=== PATIENT | male | born 1960 | race African-American/Black ===

== ENCOUNTER 2019-06-16 05:49 | Inpatient (IN) | payer OTHER ==
[~2019-06-16 05:49] MED LIST: CEFAZOLIN INJ 1 GM VIAL IV PRN; LACTATED RINGERS 1000 ML IV PRN; LIDOCAINE 0.5% INJ-PF (5 MG/ML) 50 ML SDV SUBCUT PRN; OXYCODONE HCL SR 10 MG TABLET PO PRN; PANTOPRAZOLE SODIUM 20 MG TABLET.DR PO PRN; VANCOMYCIN HCL 1,000 MG in DEXTROSE 5%-WATER 250 ML IV PRN
[2019-06-16] MEDS ORDERED: ONDANSETRON HCL INJ/PF 4 MG/2 ML SDV ONE (06:37)
[2019-06-16] MEDS ORDERED: DEXAMETHASONE SOD PHOSPHATE INJ 4 MG/1 ML VIAL ONE (06:37)
[2019-06-16] MEDS ORDERED: MIDAZOLAM 2 MG/2 ML INJ ONE (06:37)
[2019-06-16] MEDS ORDERED: TRANEXAMIC ACID INJ/PF 1,000 MG/10 ML SDV IV ONE ×2 (06:37→14:00)
[2019-06-16] MEDS ORDERED: FENTANYL CITRATE INJ/PF 100 MCG/2 ML AMPUL ONE (06:37)
[2019-06-16] MEDS ORDERED: PROPOFOL INJ 200 MG/20 ML VIAL IV ONE (06:38)
[2019-06-16] MEDS ORDERED: OXYCODONE HCL SR 10 MG TABLET PO ONE (08:02)
[2019-06-16] MEDS ORDERED: PANTOPRAZOLE SODIUM 20 MG TABLET.DR PO ONE (08:03)
[2019-06-16] MEDS ORDERED: BUPIVACAINE HCL 0.25% /EPINEPHRINE INJ/PF 30 ML SDV ONE (08:27)
[2019-06-16] MEDS ORDERED: CEFAZOLIN INJ 1 GM VIAL ONE (08:56)
[2019-06-16] MEDS ORDERED: THROMBIN (BOVINE) TOPICAL 20000 UNIT VIAL ONE (09:21)
[2019-06-16] MEDS ORDERED: PROMETHAZINE HCL INJ 25 MG/1 ML VIAL IV PRN ×2 (09:36)
[2019-06-16] MEDS ORDERED: ONDANSETRON HCL INJ/PF 4 MG/2 ML SDV IV PRN ×2 (09:36→11:07)
[2019-06-16] MEDS ORDERED: FENTANYL CITRATE INJ/PF 100 MCG/2 ML AMPUL IV PRN ×3 (09:36)
[2019-06-16] MEDS ORDERED: MEPERIDINE HCL/PF INJ 25 MG/1 ML DISP.SYRIN IV PRN (09:36)
[2019-06-16] MEDS ORDERED: MORPHINE SULFATE 10 MG/ML INJ IV PRN (09:36)
[2019-06-16] MEDS ORDERED: DIPHENHYDRAMINE HCL 50 MG/ML VIAL IV PRN ×2 (09:36→11:07)
--- NOTE | 2019-06-16 11:06 | Operative Report ---
Operative Report DATE OF SURGERY: 06/16/19 PREOPERATIVE DIAGNOSIS: Inflammatory arthropathy right knee OPERATION: Posterior stabilized right knee arthroplasty SURGEON: TATINAA BALL ANESTHESIA: Spinal TISSUE REMOVED OR ALTERED: Bone to pathology ESTIMATED BLOOD LOSS: 75 PROCEDURE: Implants used: Femur: Ilan triathlon PS femur, size 7 Tibia: 6 tibia Tibial liner: 11 mm PS insert Patella: 38 oval patella Procedure with the patient supine on the operating table the right the limb is prepped and draped in a sterile fashion. The limb was elevated for exsanguination and the tourniquet inflated to 280 torr. A standard midline median parapatellar approach the knee is taken. Access is gained to the femoral canal through the intercondylar notch. Intramedullary alignment instrumentation used to resect 10 mm of distal femur in 5 of valgus. Sizing guide indicated a size 7 femur. Appropriate cutting jig is then used to fashion anterior posterior and chamfer cuts. A separate jig was then used to resect the PS box. A trial reduction femurs performed and this is judged to be adequate. Attention was next turned to the tibia. Using an extra medullary alignment system 9 millimeters was resected off the lateral tibial plateau. This is sized to a size 6 tibia. A trial reduction was now performed with a 7 femur and a 6 tibia using a 11 millimeters spacer. It is full extension and central patellofemoral tracking. The articular surface the patella was next resected using an oscillating saw. All trial implants were removed. Polymethylmethacrylate is mixed and used to cement the above implants in place. On adequate curing the cement excess cement was removed the tourniquet was deflated hemostasis obtained the wound is then closed in layers using interrupted Vicryl followed by kailey. A sterile compressive dressing was applied and the patient returned to recovery room in satisfactory condition.
[2019-06-16] MEDS ORDERED: ZOLPIDEM TARTRATE 5 MG TABLET PO PRN ×2 (11:07→13:30)
[2019-06-16] MEDS ORDERED: OXYCODONE HCL IR 5 MG TABLET PO PRN (11:07)
[2019-06-16] MEDS ORDERED: ONDANSETRON 4 MG TAB.RAPDIS PO PRN ×2 (11:07→13:30)
[2019-06-16] MEDS ORDERED: MAG HYDROX/AL HYDROX/SIMETH SUSP 30 ML UDCUP PO PRN (11:07)
[2019-06-16] MEDS ORDERED: ACETAMINOPHEN 325 MG TABLET PO PRN (11:07)
--- NOTE | 2019-06-16 12:20 | RADIOLOGY REPORT (SQ) ---
EXAM DESCRIPTION: KNEE RIGHT 2 VIEWS COMPLETED DATE/TIME: 06/16/2019 11:50 am REASON FOR STUDY: Post OP -Long Cassette in PACU M17.11 UNILATERAL PRIMARY OSTEOARTHRITIS, RIGHT KN EE COMPARISON: None. NUMBER OF VIEWS: Two view(s). TECHNIQUE: Digital radiographic images of the right knee post-procedure. LIMITATIONS: None. FINDINGS: BONES: No worrisome or unexpected findings post-procedure. DEVICE: Total knee arthroplasty SOFT TISSUES: No worrisome findings. Expected postoperative soft tissue changes. IMPRESSION: SATISFACTORY POSTOPERATIVE RIGHT KNEE. TECHNICAL DOCUMENTATION: JOB ID: [id number] [employer] 2000- All Rights Reserved Reading location - IP/workstation name: [email or web address]
[2019-06-16] MEDS: ONDANSETRON HCL INJ/PF 4 MG/2 ML SDV IV PRN (15:01)
[2019-06-16] MEDS: IBUPROFEN 800 MG in NORMAL SALINE 250 ML IV SCH ×2 (15:42→21:25)
[2019-06-16] MEDS: RINGERS SOLUTION,LACTATED 1,000 ML IV PRN ×2 (15:47→23:35)
[2019-06-16] MEDS ORDERED: EPINEPHRINE 0.3 MG IM PRN (16:30)
[2019-06-16] MEDS: SENNOSIDES/DOCUSATE 8.6-50 MG 1 EACH TABLET PO SCH (17:32)
[2019-06-16] MEDS ORDERED: FLECAINIDE ACETATE 100 MG TABLET PO SCH (18:00)
[2019-06-16] MEDS: OXYCODONE HCL SR 10 MG TABLET PO SCH (21:25)
[2019-06-16] MEDS: FLECAINIDE ACETATE 100 MG TABLET PO SCH (21:55)
[2019-06-16] MEDS ORDERED: ATORVASTATIN CALCIUM 40 MG TABLET PO SCH (22:00)
[2019-06-16] MEDS ORDERED: VANCOMYCIN HCL 1,000 MG in DEXTROSE 5%-WATER 250 ML IV ONE (23:07)
[2019-06-17] MEDS ORDERED: PANTOPRAZOLE SODIUM 40 MG TABLET.DR PO SCH (06:00)
[2019-06-17] MEDS: IBUPROFEN 800 MG in NORMAL SALINE 250 ML IV SCH (06:09)
[2019-06-17 06:13] LABS: HEMATOCRIT 33.3 % (37.9-51.0); HEMOGLOBIN 11.1 g/dL (13.5-17.0); MEAN CORPUSCULAR HEMOGLOBIN 28.4 pg (27.0-33.4); MEAN CORPUSCULAR HGB CONC 33.4 g/dL (32.0-36.0); MEAN CORPUSCULAR VOLUME 85 fl (80-97); PLATELET COUNT 335 10^3/uL (150-450); RED BLOOD COUNT 3.92 10^6/uL (4.35-5.55); RED CELL DISTRIBUTION WIDTH 16.9 % (11.5-14.0); WHITE BLOOD COUNT 8.5 10^3/uL (4.0-10.5)
[2019-06-17] MEDS: RINGERS SOLUTION,LACTATED 1,000 ML IV PRN (06:14)
[2019-06-17 06:38] LABS: ANION GAP 8 (5-19); BLOOD UREA NITROGEN 19 mg/dL (7-20); CALCIUM 8.5 mg/dL (8.4-10.2); CARBON DIOXIDE 29 mmol/L (22-30); CHLORIDE 98 mmol/L (98-107); GLUCOSE 123 mg/dL (75-110); POTASSIUM 4.2 mmol/L (3.6-5.0)
--- NOTE | 2019-06-17 06:59 | PDOC DISCHARGE SUMMARY ---
General - Admit/Disc Date/PCP Admission Date/Primary Care Provider: 06/16/19 07:41 [facility] Discharge Date: 06/17/19 - Additional Information Resuscitation Status: Full Code Discharge Diet: As Tolerated, Regular Discharge Activity: Balance Activity w/Rest, No Driving, No tub bath Home Medications: Aspirin [Aspirin 81 mg Chewable Tablet] 81 mg PO DAILY 06/04/19 Atorvastatin Calcium [Lipitor 40 mg Tablet] 40 mg PO DAILY 06/04/19 Epinephrine 0.3 mg IM PRN PRN 06/04/19 Flecainide Acetate [Tambocor 100 mg Tablet] 100 mg PO BID 06/04/19 Folic Acid [Folvite 1 mg Tablet] 1 mg PO DAILY 06/04/19 Hydrochlorothiazide [Hydrodiuril 25 mg Tablet] 25 mg PO DAILY 06/04/19 Metoprolol Succinate [Toprol Xl 50 mg Tab.sr] 50 mg PO DAILY 06/04/19 Potassium Chloride 10 meq PO DAILY 06/04/19 Prednisone [Deltasone 5 mg Tablet] 5 mg PO DAILY 06/16/19 History of Present Illness History of Present Illness: DEYANIRA COSME is a 58 year old male Patient is a 58-year-old black male with an inflammatory arthropathy and ongoing progressive bilateral knee pain and functional disability right greater than left. Patient is admitted for elective right knee arthroplasty. Hospital Course Hospital Course: Patient is admitted through the operating room where he undergoes uncomplicated right knee arthroplasty. Is returned to floor in satisfactory condition. Initially had problems with nausea and vomiting this resolved with Zofran. He made excellent progress with physical therapy. Compressive dressing was removed on postop day 1. Underlying OpSite dressing is clean dry and intact. Physical Exam Vital Signs: Temp Pulse Resp BP Pulse Ox 37.0 C 57 L 17 135/64 H 97 06/16/19 23:39 06/16/19 23:39 06/16/19 23:39 06/16/19 23:39 06/16/19 23:39 Intake & Output 06/15/19 06/16/19 06/17/19 06:59 06:59 06:59 Intake Total 4944 Output Total 1025 Balance 3919 Weight 101.3 kg Physical Exam: Middle-aged black male lying in bed in CPAP machine in no distress. General appearance: PRESENT: no acute distress Head exam: PRESENT: normocephalic Respiratory exam: PRESENT: unlabored Cardiovascular exam: PRESENT: RRR Pulses: PRESENT: +1 pedal pulses bilateral GI/Abdominal exam: PRESENT: soft Rectal exam: PRESENT: deferred Extremities exam: PRESENT: other - Distal neurovascular examination is intact. Minimal pedal edema. Neurological exam: PRESENT: alert, awake, oriented to person, oriented to place, oriented to time, oriented to situation. ABSENT: motor sensory deficit Psychiatric exam: PRESENT: appropriate affect, normal mood. ABSENT: homicidal ideation, suicidal ideation Skin exam: PRESENT: dry, intact, warm. ABSENT: cyanosis, rash Results Laboratory Results: 06/17/19 04:42 06/17/19 04:42 06/16/19 06/17/19 06/17/19 08:43 04:42 04:42 WBC 8.5 RBC 3.92 L Hgb 11.1 L Hct 33.3 L MCV 85 MCH 28.4 MCHC 33.4 RDW 16.9 H Plt Count 335 Sodium 134.8 L Potassium 3.6 4.2 Chloride 98 Carbon Dioxide 29 Anion Gap 8 BUN 19 Creatinine 1.06 Est GFR ( Amer) > 60 Est GFR (Non-Af Amer) > 60 Glucose 123 H Calcium 8.5 Impressions: Knee X-Ray 06/16/19 11:08 IMPRESSION: SATISFACTORY POSTOPERATIVE RIGHT KNEE. Status: Imported from [facility] Qualifiers - * PATIENT BEING DISCHARGED WITH ANY OF THE FOLLOWING DIAGNOSIS: No VTE patient discharged on overlapping Therapy?: Yes Acute Heart Failure - Is this a Heart Failure Patient?: No Plan Discharge Plan: Patient be discharged home with home health services and DME. Follow-up with Dr. Elina Raya [place] for surgery in 2 weeks for staple removal.
[2019-06-17] MEDS: ONDANSETRON HCL INJ/PF 4 MG/2 ML SDV IV PRN (08:21)
[2019-06-17] MEDS: FLECAINIDE ACETATE 100 MG TABLET PO SCH (09:19)
[2019-06-17] MEDS: SENNOSIDES/DOCUSATE 8.6-50 MG 1 EACH TABLET PO SCH (09:19)
[2019-06-17] MEDS: OXYCODONE HCL SR 10 MG TABLET PO SCH (09:20)
[2019-06-17] MEDS ORDERED: ATORVASTATIN CALCIUM 40 MG TABLET PO SCH (10:00)
[2019-06-17] MEDS ORDERED: PREDNISONE 5 MG TABLET PO SCH ×2 (10:00)
[2019-06-17] MEDS ORDERED: ASPIRIN 81 MG TABLET, CHEWABLE PO SCH (10:00)
[2019-06-17] MEDS ORDERED: METOPROLOL SUCCINATE 50 MG TAB.SR.24H PO SCH (10:00)
[2019-06-17] MEDS ORDERED: PRENATAL VITAMIN W DHA CAPSULE PO SCH (10:00)
[2019-06-17] MEDS ORDERED: FOLIC ACID 1 MG TABLET PO SCH (10:00)
[2019-06-17] MEDS ORDERED: (PENDING PHARMACY ID) (Potassium Chloride [Potassium Chloride] 10 MEQ) PO SCH (10:00)
[2019-06-17] MEDS ORDERED: HYDROCHLOROTHIAZIDE 25 MG TABLET PO SCH (10:00)
[2019-06-17 10:27] VITALS: BP 135/64
== END 2019-06-17 10:45 | disposition home health service (06) | DRG 470 ==
LOC: INOR 07:41 → 4S 12:38
PROVIDERS: ADMIT Orthopaedic Surgery; ATTEND Orthopaedic Surgery
PROC: 0SRC0J9 Replacement of Right Knee Joint with Synthetic Substitute, Cemented, Open Approach (ICD-10-PCS; principal; 2019-06-16 10:00)
DX: M17.11 Unilateral primary osteoarthritis, right knee (principal); G47.30 Sleep apnea, unspecified; E78.5 Hyperlipidemia, unspecified; I10 Essential (primary) hypertension; Z79.82 Long term (current) use of aspirin; Z79.899 Other long term (current) drug therapy
CPT/HCPCS: 01402; 36415; 80048; 84132; 85027; 88305; 88311; 94799; C1713; C1776; J0690; J1100; J1741; J2250; J2405; J2704; J3010; J3370; J3490; J7050; J7060; J7120; J7512

== ENCOUNTER → 2019-09-05 | Outpatient (CLI) | payer OTHER ==
[2019-09-05 10:06] LABS: ABSOLUTE BASOPHILS # (AUTO) 0.1 10^3/uL (0.0-0.2); ABSOLUTE EOSINOPHILS # (AUTO) 0.3 10^3/uL (0.0-0.6); ABSOLUTE LYMPHOCYTES (AUTO) 1.8 10^3/uL (0.5-4.7); ABSOLUTE MONOCYTES (AUTO) 0.5 10^3/uL (0.1-1.4); ABSOLUTE NEUT (AUTO) 6.7 10^3/uL (1.7-8.2); BASOPHILS % (AUTO) 0.7 % (0-2); EOSINOPHILS % (AUTO) 2.7 % (0-6); HEMATOCRIT 37.4 % (37.9-51.0); HEMOGLOBIN 12.4 g/dL (13.5-17.0); LYMPHOCYTES % (AUTO) 19.5 % (13-45); MEAN CORPUSCULAR HEMOGLOBIN 27.9 pg (27.0-33.4); MEAN CORPUSCULAR HGB CONC 33.1 g/dL (32.0-36.0); MEAN CORPUSCULAR VOLUME 85 fl (80-97); MONOCYTES % (AUTO) 5.7 % (3-13); PLATELET COUNT 443 10^3/uL (150-450); RED BLOOD COUNT 4.43 10^6/uL (4.35-5.55); RED CELL DISTRIBUTION WIDTH 17.6 % (11.5-14.0); SEGMENTED NEUTROPHILS % (AUTO) 71.4 % (42-78); TOTAL CELLS COUNTED % (AUTO) 100 %; WHITE BLOOD COUNT 9.4 10^3/uL (4.0-10.5)
[2019-09-05 10:27] LABS: ANION GAP 8 (5-19); BLOOD UREA NITROGEN 11 mg/dL (7-20); CALCIUM 9.3 mg/dL (8.4-10.2); CARBON DIOXIDE 30 mmol/L (22-30); CHLORIDE 104 mmol/L (98-107); GLUCOSE 123 mg/dL (75-110); POTASSIUM 4.2 mmol/L (3.6-5.0)
[2019-09-05 10:53] LABS: APPEARANCE,URINE SLIGHTLY-CLOUDY; BILIRUBIN,URINE NEGATIVE (NEGATIVE); COLOR,URINE YELLOW; GLUCOSE, URINE NEGATIVE (NEGATIVE); KETONES,URINE NEGATIVE (NEGATIVE); LEUKOCYTE ESTERASE,URINE NEGATIVE (NEGATIVE); NITRITE,URINE NEGATIVE (NEGATIVE); PROTEIN,URINE 30 mg/dL (NEGATIVE); URINE SPECIFIC GRAVITY 1.015; UROBILINOGEN,URINE NEGATIVE mg/dL (<2.0)
--- NOTE | 2019-09-05 12:59 | RADIOLOGY REPORT (SQ) ---
EXAM DESCRIPTION: CHEST PA/LATERAL COMPLETED DATE/TIME: 09/05/2019 9:51 am REASON FOR STUDY: PREOP COMPARISON: 06/03/2019 EXAM PARAMETERS: NUMBER OF VIEWS: two views TECHNIQUE: Digital Frontal and Lateral radiographic views of the chest acquired. RADIATION DOSE: NA LIMITATIONS: none FINDINGS: LUNGS AND PLEURA: No opacities, masses or pneumothorax. No pleural effusion. MEDIASTINUM AND HILAR STRUCTURES: No masses or contour abnormalities. HEART AND VASCULAR STRUCTURES: Heart normal size. No evidence for failure. BONES: No acute findings. HARDWARE: None in the chest. OTHER: No other significant finding. IMPRESSION: NO SIGNIFICANT RADIOGRAPHIC FINDING IN THE CHEST. TECHNICAL DOCUMENTATION: JOB ID: [id number] [employer]- All Rights Reserved Reading location - IP/workstation name: [email or web address]
--- NOTE | 2019-09-05 18:14 | EKG REPORT ---
SEVERITY:- ABNORMAL ECG - SINUS RHYTHM FIRST DEGREE AV BLOCK LEFT ANTERIOR FASCICULAR BLOCK : Confirmed by: Kale Qureshi MD 05-Sep-2019 18:13:30
== END ==
LOC: OD 09:27
PROVIDERS: ATTEND Orthopaedic Surgery
DX: Z01.810 Encounter for preprocedural cardiovascular examination (principal); Z01.811 Encounter for preprocedural respiratory examination; Z01.812 Encounter for preprocedural laboratory examination; M17.12 Unilateral primary osteoarthritis, left knee
CPT/HCPCS: 36415; 71046; 80048; 81001; 85025; 93005; 93010

== ENCOUNTER 2019-09-15 07:23 | Inpatient (IN) | payer OTHER ==
[~2019-09-15 07:23] MED LIST changes: +BUPIVACAINE HCL 0.25 % INJ/PF (2.5 MG/1 ML) 30 ML VIAL ONE; +BUPIVACAINE INJ/PF LIPOSOME/PF 266 MG/20 ML SDV INJ PRN; +CEFAZOLIN INJ 1 GM VIAL ONE; +EPHEDRINE SULFATE INJ 50 MG/1 ML AMPULE ONE; +FENTANYL CITRATE INJ/PF 100 MCG/2 ML AMPUL ONE; +IBUPROFEN 800 MG in NORMAL SALINE 250 ML IV PRN; +LIDOCAINE 2% INJ-PF (20 MG/ML) 10 ML AMPUL ONE; +MIDAZOLAM 2 MG/2 ML INJ ONE; +ONDANSETRON HCL INJ/PF 4 MG/2 ML SDV ONE; +OXYCODONE HCL SR 10 MG TABLET PO ONE; +PANTOPRAZOLE SODIUM 20 MG TABLET.DR PO ONE; +PROPOFOL INJ 200 MG/20 ML VIAL IV ONE
[2019-09-15] MEDS ORDERED: TRANEXAMIC ACID INJ/PF 1,000 MG/10 ML SDV ONE (08:13)
[2019-09-15] MEDS ORDERED: DIPHENHYDRAMINE HCL 50 MG/ML VIAL IV PRN ×2 (09:43→10:21)
[2019-09-15] MEDS ORDERED: MEPERIDINE HCL/PF INJ 25 MG/1 ML DISP.SYRIN IV PRN (09:43)
[2019-09-15] MEDS ORDERED: ONDANSETRON HCL INJ/PF 4 MG/2 ML SDV IV PRN (09:43)
[2019-09-15] MEDS ORDERED: FENTANYL CITRATE INJ/PF 100 MCG/2 ML AMPUL IV PRN ×3 (09:43)
[2019-09-15] MEDS ORDERED: OXYCODONE-ACETAMINOPHEN 5-325 MG TABLET PO PRN ×2 (09:43)
[2019-09-15] MEDS ORDERED: PROMETHAZINE HCL INJ 25 MG/1 ML VIAL IV PRN ×2 (09:43)
[2019-09-15] MEDS ORDERED: VANCOMYCIN HCL INJ 1000 MG VIAL ONE (09:54)
[2019-09-15] MEDS ORDERED: RINGERS SOLUTION,LACTATED 1,000 ML IV PRN (10:21)
[2019-09-15] MEDS ORDERED: ONDANSETRON 4 MG TAB.RAPDIS PO PRN (10:21)
[2019-09-15] MEDS ORDERED: ACETAMINOPHEN 325 MG TABLET PO PRN ×2 (10:21→11:45)
[2019-09-15] MEDS ORDERED: ZOLPIDEM TARTRATE 5 MG TABLET PO PRN (10:21)
[2019-09-15] MEDS ORDERED: OXYCODONE HCL IR 5 MG TABLET PO PRN (10:21)
--- NOTE | 2019-09-15 10:27 | Operative Report ---
Operative Report DATE OF SURGERY: 09/15/19 PREOPERATIVE DIAGNOSIS: Left knee inflammatory arthropathy OPERATION: Left knee arthroplasty SURGEON: TATIANA BALL ANESTHESIA: Spinal TISSUE REMOVED OR ALTERED: Bone to pathology ESTIMATED BLOOD LOSS: 100 PROCEDURE: Implants used: Femur: William triathlon size 7 PS femur Tibia: 6 tibia Tibial liner: 9 mMeter PS insert Patella: 40 mm oval patella Procedure with the patient supine on the operating table the left the limb is prepped and draped in a sterile fashion. The limb was elevated for exsanguination and the tourniquet inflated to 280 torr. A standard midline median parapatellar approach the knee is taken. Access is gained to the femoral canal through the intercondylar notch. Intramedullary alignment instrumentation used to resect 10 mm of distal femur in 5 of valgus. Sizing guide indicated a size 7 femur. Appropriate cutting jig is then used to fashion anterior posterior and chamfer cuts. Posterior stabilized box was next cut using a reciprocating saw. A trial reduction femurs performed and this is judged to be adequate. Attention was next turned to the tibia. Using an extra medullary alignment sys tem 9 millimeters was resected off the lateral tibial plateau. This is sized to a size 6 tibia. A trial reduction was now performed with a 7 femur and a 6 tibia using a 9 millimeters spacer. It is full extension and central patellofemoral tracking. The articular surface the patella was next resected using an oscillating saw. All trial implants were removed. Polymethylmethacrylate with vancomycin is mixed and used to cement the above implants in place. On adequate curing the cement excess cement was removed the tourniquet was deflated hemostasis obtained the wound is then closed in layers using interrupted Vicryl followed by kailey. A sterile compressive dressing was applied and the patient returned to recovery room in satisfactory condition.
[2019-09-15] MEDS ORDERED: TRANEXAMIC ACID INJ/PF 1,000 MG/10 ML SDV IV ONE (12:00)
--- NOTE | 2019-09-15 12:01 | RADIOLOGY REPORT (SQ) ---
EXAM DESCRIPTION: KNEE LEFT 2 VIEWS COMPLETED DATE/TIME: 09/15/2019 11:16 am REASON FOR STUDY: Post OP -Long Cassette in PACU M17.12 UNILATERAL PRIMARY OSTEOARTHRITIS, LEFT KNE E COMPARISON: None. NUMBER OF VIEWS: Two view(s). TECHNIQUE: Digital radiographic images of the left knee post-procedure. LIMITATIONS: None. FINDINGS: BONES: No worrisome or unexpected findings post-procedure. DEVICE: Total knee arthroplasty. SOFT TISSUES: No worrisome findings. Expected postoperative soft tissue changes. IMPRESSION: SATISFACTORY POSTOPERATIVE LEFT KNEE. TECHNICAL DOCUMENTATION: JOB ID: [id number] [employer]- All Rights Reserved Reading location - IP/workstation name: [email or web address]
[2019-09-15] MEDS: ONDANSETRON HCL INJ/PF 4 MG/2 ML SDV IV PRN (14:02)
[2019-09-15] MEDS: POTASSIUM CHLORIDE 10 MEQ CAPSULE.ER PO SCH (14:20)
[2019-09-15] MEDS: IBUPROFEN 800 MG in NORMAL SALINE 250 ML IV SCH ×2 (15:01→21:12)
[2019-09-15] MEDS ORDERED: FLECAINIDE ACETATE 100 MG TABLET PO SCH (18:00)
[2019-09-15] MEDS: ATORVASTATIN CALCIUM 40 MG TABLET PO SCH (21:10)
[2019-09-15] MEDS: ACETAMINOPHEN 325 MG TABLET PO PRN (21:11)
[2019-09-15] MEDS: OXYCODONE HCL SR 10 MG TABLET PO SCH (21:18)
[2019-09-15] MEDS ORDERED: VANCOMYCIN HCL 1,000 MG in DEXTROSE 5%-WATER 250 ML IV ONE (22:21)
[2019-09-16] MEDS: IBUPROFEN 800 MG in NORMAL SALINE 250 ML IV SCH ×3 (05:03→21:39)
[2019-09-16] MEDS: PANTOPRAZOLE SODIUM 40 MG TABLET.DR PO SCH (05:03)
[2019-09-16 05:41] LABS: HEMATOCRIT 32.1 % (37.9-51.0); HEMOGLOBIN 10.5 g/dL (13.5-17.0); MEAN CORPUSCULAR HEMOGLOBIN 27.6 pg (27.0-33.4); MEAN CORPUSCULAR HGB CONC 32.6 g/dL (32.0-36.0); MEAN CORPUSCULAR VOLUME 85 fl (80-97); PLATELET COUNT 328 10^3/uL (150-450); RED CELL DISTRIBUTION WIDTH 17.7 % (11.5-14.0); WHITE BLOOD COUNT 5.1 10^3/uL (4.0-10.5)
[2019-09-16 06:08] LABS: ANION GAP 9 (5-19); BLOOD UREA NITROGEN 13 mg/dL (7-20); CALCIUM 8.4 mg/dL (8.4-10.2); CARBON DIOXIDE 27 mmol/L (22-30); CHLORIDE 105 mmol/L (98-107); GLUCOSE 135 mg/dL (75-110); POTASSIUM 3.7 mmol/L (3.6-5.0)
--- NOTE | 2019-09-16 07:07 | PDOC DISCHARGE SUMMARY ---
Impression - Admit/DC Date/PCP Admission Date/Primary Care Provider: 09/15/19 07:23 [facility] Discharge Date: 09/16/19 - Discharge Diagnosis (1) Arthritis of left knee Is this a current diagnosis for this admission?: Yes - Additional Information Resuscitation Status: Full Code Discharge Diet: Regular Discharge Activity: Balance Activity w/Rest, No tub bath [facility]errals[facility] [Primary [facility]] - Home Medications: Aspirin [Aspirin 81 mg Chewable Tablet] 81 mg PO DAILY 06/04/19 Atorvastatin Calcium [Lipitor 40 mg Tablet] 40 mg PO QHS 06/04/19 Epinephrine 0.3 mg IM ASDIR PRN 06/04/19 Flecainide Acetate [Tambocor 100 mg Tablet] 100 mg PO BID 06/04/19 Folic Acid [Folvite 1 mg Tablet] 1 mg PO DAILY 06/04/19 Hydrochlorothiazide [Hydrodiuril 25 mg Tablet] 25 mg PO DAILY 06/04/19 Metoprolol Succinate [Toprol Xl 50 mg Tab.sr] 50 mg PO QHS 06/04/19 Potassium Chloride 10 meq PO DAILY 06/04/19 Prednisone [Deltasone 5 mg Tablet] 5 mg PO DAILY 06/16/19 Methotrexate Sodium [Rheumatrex 2.5 mg Tablet] 20 mg PO MO@1800 09/15/19 History of Present Illiness History of Present Illness: DEYANIRA COSME is a 59 year old male 59-year-old black male with progressive left knee pain and functional disability secondary to an inflammatory arthropathy. Patient is admitted for elective left knee arthroplasty. Hospital Course Hospital Course: Patient is admitted through the operating where he undergoes an uncomplicated left knee arthroplasty. Is returned to floor in satisfactory condition. He makes excellent progress with physical therapy ablating on the day of surgery. On postop morning 1 the left knee dressing is changed. Wound is clean dry and intact with kailey. Physical Exam Vital Signs: Temp Pulse Resp BP Pulse Ox 36.9 C 70 16 138/65 H 96 09/15/19 23:37 09/15/19 23:37 09/15/19 23:37 09/15/19 23:37 09/15/19 23:37 Intake & Output 09/15/19 09/16/19 09/17/19 06:59 06:59 06:59 Intake Total 6509 Output Total 4994 Balance 1515 Weight 102 kg General appearance: PRESENT: no acute distress Head exam: PRESENT: normocephalic Cardiovascular exam: PRESENT: RRR Vascular exam: PRESENT: normal capillary refill Musculoskeletal exam: PRESENT: other - Left knee dressing is injured this morning. Wound is well approximated kailey. Small venous ooze from the very distal aspect of the wound. Neurological exam: PRESENT: alert, awake, oriented to person, oriented to place, oriented to time, oriented to situation. ABSENT: motor sensory deficit Psychiatric exam: PRESENT: appropriate affect, normal mood. ABSENT: homicidal ideation, suicidal ideation Skin exam: PRESENT: dry, intact, warm. ABSENT: cyanosis, rash Results Laboratory Results: WBC 5.1 10^3/uL (4.0-10.5) 09/16/19 04:48 RBC 3.80 10^6/uL (4.35-5.55) L 09/16/19 04:48 Hgb 10.5 g/dL (13.5-17.0) L 09/16/19 04:48 Hct 32.1 % (37.9-51.0) L 09/16/19 04:48 MCV 85 fl (80-97) 09/16/19 04:48 MCH 27.6 pg (27.0-33.4) 09/16/19 04:48 MCHC 32.6 g/dL (32.0-36.0) 09/16/19 04:48 RDW 17.7 % (11.5-14.0) H 09/16/19 04:48 Plt Count 328 10^3/uL (150-450) 09/16/19 04:48 Sodium 140.9 mmol/L (137-145) 09/16/19 04:48 Potassium 3.7 mmol/L (3.6-5.0) 09/16/19 04:48 Chloride 105 mmol/L (98-107) 09/16/19 04:48 Carbon Dioxide 27 mmol/L (22-30) 09/16/19 04:48 Anion Gap 9 (5-19) 09/16/19 04:48 BUN 13 mg/dL (7-20) 09/16/19 04:48 Creatinine 0.77 mg/dL (0.52-1.25) 09/16/19 04:48 Est GFR ( Amer) > 60 (>60) 09/16/19 04:48 Est GFR (MDRD) Non-Af > 60 (>60) 09/16/19 04:48 Glucose 135 mg/dL (75-110) H 09/16/19 04:48 Calcium 8.4 mg/dL (8.4-10.2) 09/16/19 04:48 Impressions: Knee X-Ray 09/15/19 10:23 IMPRESSION: SATISFACTORY POSTOPERATIVE LEFT KNEE. Plan Plan of Treatment: Discharge home with home health services and DME. Follow-up with Dr. Antoine and [facility] for surgery in 2 weeks for staple removal. Stroke Is this a Stroke Patient?: No Stroke Pt being discharged on Anti-thrombolytic therapy?: Yes Acute Heart Failure - Is this a Heart Failure Patient?: No
[2019-09-16] MEDS: FLECAINIDE ACETATE 100 MG TABLET PO SCH ×2 (08:18→17:49)
[2019-09-16] MEDS: HYDROCHLOROTHIAZIDE 25 MG TABLET PO SCH (08:18)
[2019-09-16] MEDS ORDERED: ATORVASTATIN CALCIUM 40 MG TABLET PO SCH (10:00)
[2019-09-16] MEDS ORDERED: HYDROCHLOROTHIAZIDE 25 MG TABLET PO SCH (10:00)
[2019-09-16] MEDS: ONDANSETRON HCL INJ/PF 4 MG/2 ML SDV IV PRN (10:33)
[2019-09-16] MEDS: OXYCODONE HCL SR 10 MG TABLET PO SCH ×2 (11:14→21:48)
[2019-09-16] MEDS: POTASSIUM CHLORIDE 10 MEQ CAPSULE.ER PO SCH (11:58)
[2019-09-16] MEDS: ASPIRIN 81 MG TABLET, CHEWABLE PO SCH (11:58)
[2019-09-16] MEDS: FOLIC ACID 1 MG TABLET PO SCH (11:58)
[2019-09-16] MEDS: METOPROLOL SUCCINATE 50 MG TAB.SR.24H PO SCH (11:58)
[2019-09-16] MEDS ORDERED: TRANEXAMIC ACID INJ/PF 1,000 MG/10 ML SDV IV ONE (12:00)
[2019-09-16] MEDS: PREDNISONE 5 MG TABLET PO SCH (12:01)
[2019-09-16] MEDS: ATORVASTATIN CALCIUM 40 MG TABLET PO SCH (21:40)
[2019-09-16] MEDS: ACETAMINOPHEN 325 MG TABLET PO PRN (21:40)
[2019-09-17] MEDS: IBUPROFEN 800 MG in NORMAL SALINE 250 ML IV SCH (05:31)
[2019-09-17] MEDS: PANTOPRAZOLE SODIUM 40 MG TABLET.DR PO SCH (05:31)
[2019-09-17 07:27] LABS: HEMATOCRIT 28.5 % (37.9-51.0); HEMOGLOBIN 9.5 g/dL (13.5-17.0); MEAN CORPUSCULAR HEMOGLOBIN 27.9 pg (27.0-33.4); MEAN CORPUSCULAR HGB CONC 33.4 g/dL (32.0-36.0); MEAN CORPUSCULAR VOLUME 84 fl (80-97); PLATELET COUNT 343 10^3/uL (150-450); RED BLOOD COUNT 3.41 10^6/uL (4.35-5.55); RED CELL DISTRIBUTION WIDTH 17.3 % (11.5-14.0); WHITE BLOOD COUNT 7.6 10^3/uL (4.0-10.5)
[2019-09-17] MEDS: HYDROCHLOROTHIAZIDE 25 MG TABLET PO SCH (07:52)
[2019-09-17] MEDS: FLECAINIDE ACETATE 100 MG TABLET PO SCH (07:54)
[2019-09-17] MEDS: PREDNISONE 5 MG TABLET PO SCH (09:07)
[2019-09-17] MEDS: ASPIRIN 81 MG TABLET, CHEWABLE PO SCH (09:07)
[2019-09-17] MEDS: METOPROLOL SUCCINATE 50 MG TAB.SR.24H PO SCH (09:07)
[2019-09-17] MEDS: FOLIC ACID 1 MG TABLET PO SCH (09:07)
[2019-09-17] MEDS: POTASSIUM CHLORIDE 10 MEQ CAPSULE.ER PO SCH (09:07)
[2019-09-17] MEDS: OXYCODONE HCL SR 10 MG TABLET PO SCH (09:08)
[2019-09-17 09:23] VITALS: BP 139/75
== END 2019-09-17 12:30 | disposition home health service (06) | DRG 470 ==
LOC: INOR 07:23 → 4S 12:22
PROVIDERS: ADMIT Orthopaedic Surgery; ATTEND Orthopaedic Surgery
PROC: 0SRD0J9 Replacement of Left Knee Joint with Synthetic Substitute, Cemented, Open Approach (ICD-10-PCS; principal; 2019-09-15 08:45)
DX: M17.12 Unilateral primary osteoarthritis, left knee (principal); I47.1 Supraventricular tachycardia; I44.4 Left anterior fascicular block; M25.562 Pain in left knee; E78.5 Hyperlipidemia, unspecified; M06.9 Rheumatoid arthritis, unspecified; G47.30 Sleep apnea, unspecified; Z79.82 Long term (current) use of aspirin; Z79.52 Long term (current) use of systemic steroids; Z79.899 Other long term (current) drug therapy
CPT/HCPCS: 01402; 36415; 80048; 84132; 85027; 88305; 88311; 94799; C1713; C1776; J0690; J1741; J2250; J2405; J2704; J3010; J3370; J3490; J7050; J7060; J7512